=== PATIENT | female | born 2000 | race African-American/Black ===

== ENCOUNTER 2024-05-24 15:50 | Emergency (ER) | payer OTHER, SELFPAY ==
[2024-05-24 16:11] VITALS: BP 134/85; PULSE 85; RESP 18; TEMP 37.1; O2SAT 99; BMI 29.2
--- NOTE | 2024-05-24 16:15 | DI.RAD.S_ITS ---
PROCEDURE: XR WRIST LT MIN 3V INDICATIONS: left wrist pain TECHNIQUE: views of the wrist were acquired. COMPARISON: None. FINDINGS / IMPRESSION: Some images are limited by grid line artifacts, [id number]. No gross radiographic evidence of fracture, dislocation or high attenuation soft tissue foreign body. If symptoms persist or worsen, or there is high clinical suspicion of left wrist/hand abnormality, CT or MRI could be performed. Dictated by: Tyrell Cr M.D. on 05/24/2024 at 17:02 Approved by: Tyrell Cr M.D. on 05/24/2024 at 17:07
--- NOTE | 2024-05-24 16:43 | ED.UPPEXIN ---
HPI - Extremity Injury (Upper) <Michelle Bowman PA-C - Last Filed: 05/24/24 17:49> General Chief Complaint: Extremity Injury, Upper Stated Complaint: lft wrist px Time Seen by Provider: 05/24/24 16:31 Source: patient Mode of arrival: Ambulatory History of Present Illness HPI narrative: 24-year-old female here today for left wrist pain. States it started when she was at the gym doing curls. She began having wrist pain during the exercise and states it felt like strings snapping. Denies any fall or trauma to the wrist. Pain is on top of wrist. No prior injury to the affected wrist. Related Data Allergies Allergy/AdvReac Type Severity Reaction Status Date / Time No Known Drug Allergies Allergy Verified 05/24/24 16:11 Review of Systems <Michelle Bowman PA-C - Last Filed: 05/24/24 17:49> Review of Systems ROS Unobtainable: All systems reviewed & are unremarkable except as noted in HPI and below Patient History <Michelle Bowman PA-C - Last Filed: 05/24/24 17:49> Social History Smoking Status: Never smoker Smoking Status: Never smoker Exam <Michelle Bowman PA-C - Last Filed: 05/24/24 17:49> Narrative Exam Narrative: GENERAL: Well-developed, well-nourished, appears stated age. In no acute distress HEAD: Atraumatic. Normocephalic. EYES: Pupils equal round and reactive. Extraocular motions intact. No scleral icterus. No injection or drainage. ENT: Nose without bleeding, purulent drainage. Airway patent. NECK: Trachea midline. Non tender RESPIRATORY: Respiratory rate and effort normal EXTREMITIES: Normal appearance of the left wrist with no obvious swelling or deformity. Normal extension but difficulty with flexion due to pain. Normal associate application developer strength and thumb to pinky opposition. Normal perfusion and cap refill. Normal sensation. No pinpoint bony tenderness. No scaphoid tenderness. Were already NEURO: AOx3. SKIN: No rash or erythema of visible areas Initial Vital Signs Initial Vital Signs: Vital Signs Temperature 98.7 F 05/24/24 16:11 Pulse Rate 85 05/24/24 16:11 Respiratory Rate 18 05/24/24 16:11 Blood Pressure 134/85 05/24/24 16:11 Pulse Oximetry 99 05/24/24 16:11 Oxygen Delivery Method Room Air 05/24/24 16:11 <Jennifer Chua MD - Last Filed: 05/25/24 08:10> Initial Vital Signs Initial Vital Signs: Vital Signs Temperature 98.7 F 05/24/24 16:11 Pulse Rate 85 05/24/24 16:11 Respiratory Rate 18 05/24/24 16:11 Blood Pressure 134/85 05/24/24 16:11 Pulse Oximetry 99 05/24/24 16:11 Oxygen Delivery Method Room Air 05/24/24 16:11 Course <Michelle Bowman PA-C - Last Filed: 05/24/24 17:49> Orders Ordered: ED Orders 05/24/24 16:15 XR wrist LT min 3V Stat Vital Signs Vital signs: Vital Signs - 8 hr 05/24/24 16:11 Temperature 98.7 F Pulse Rate 85 Respiratory Rate 18 Blood Pressure 134/85 Pulse Oximetry 99 Oxygen Delivery Method Room Air <Jennifer Chua MD - Last Filed: 05/25/24 08:10> Orders Ordered: ED Orders 05/24/24 16:15 XR wrist LT min 3V Stat Vital Signs Vital signs: Vital Signs - 8 hr 05/24/24 16:11 Temperature 98.7 F Pulse Rate 85 Respiratory Rate 18 Blood Pressure 134/85 Pulse Oximetry 99 Oxygen Delivery Method Room Air MDM - Extremity Injury (Upper) <Michelle Bowman PA-C - Last Filed: 05/24/24 17:49> Imaging Data Extremity x-ray #1: Radiologist's Impression: [place] [address] XRay Report Signed Patient: Martha Conti MR#: [id number] : 2000 Acct:[id number] Age/Sex: 24 / F Date of Service: 05/24/24 Loc: ED Accession Number: [id number] Procedure: XR wrist LT min 3V Ordering Provider: Jennifer Chua MD PROCEDURE: XR WRIST LT MIN 3V INDICATIONS: left wrist pain TECHNIQUE: views of the wrist were acquired. COMPARISON: None. FINDINGS / IMPRESSION: Some images are limited by grid line artifacts, [id number]. No gross radiographic evidence of fracture, dislocation or high attenuation soft tissue foreign body. If symptoms persist or worsen, or there is high clinical suspicion of left wrist/hand abnormality, CT or MRI could be performed. Dictated by: Tyrell Cr M.D. on 05/24/2024 at 17:02 Approved by: Tyrell Cr M.D. on 05/24/2024 at 17:07 [facility] Narrative Medical decision making narrative: Differential includes sprain, strain, fracture, tendinitis, ligament tear X-ray negative for fracture dislocation Patient's history and exam are consistent with a sprain. Mechanism of injury involved no trauma. There is no swelling, pinpoint tenderness, or obvious deformity on exam. Neurovascular exam is normal. Patient given a wrist brace which relieved her pain. Recommend wearing this day and night for the next 7 days and then gradually resuming gentle stretching and range of motion as tolerated. If pain persists for more than 2 weeks she should follow up with her PCP to discuss further evaluation. Discharge Plan Departure Patient Disposition: Home Clinical Impression: Sprain and strain of wrist Instructions: DI for Wrist Sprain Activity Restrictions/Additional Instructions: Thank you for choosing us to care for you today. Your wrist x-ray shows that there are no broken bones. Due to the mechanism of her injury it is most likely that you sprained your wrist. You were given a wrist brace which you should keep on when both awake and asleep for the next several days. You may gradually introduce some light stretching and [id number] exercises for your wrist as tolerated. Please rest, elevate and ice the wrist throughout the next few days. You may take [id number] ibuprofen 600 mg Q 6-8 hours as needed for pain. If your pain persists for more than 2 weeks then you should follow up with your PCP to discuss the next steps in evaluating the wrist pain. Referrals: Provider,Iliana NEELY [Primary Care Provider] - Stand Alone Forms: Patient Portal/API/Survey ED Sign-out <Jennifer Chua MD - Last Filed: 05/25/24 08:10> Cosign ED Attending Gina Attestation: I was immediately available in the department for consultation throughout this patient's visit. Jennifer Chua MD
[2024-05-24 17:46] VITALS: BP 130/70; PULSE 86; RESP 20; TEMP 36.6; O2SAT 99
== END 2024-05-24 17:51 | disposition home or self-care (01) ==
PROVIDERS: Emergency Provider Physician Assistant
DX: S63.502A Unspecified sprain of left wrist, initial encounter (principal); S66.912A Strain of unspecified muscle, fascia and tendon at wrist and hand level, left hand, initial encounter; X58.XXXA Exposure to other specified factors, initial encounter; Y93.B9 Activity, other involving muscle strengthening exercises
CPT/HCPCS: 73110; 99282; 99283

== ENCOUNTER → 2024-06-10 17:55 | Outpatient (CLI) | payer OTHER, SELFPAY | PROVIDERS: Visit Provider Nurse Practitioner Family | DX: N89.8 Other specified noninflammatory disorders of vagina (principal) | CPT/HCPCS: 87210 ==